=== PATIENT | male | born 2000 | race African-American/Black ===

== ENCOUNTER 2018-03-04 00:10 | Emergency (ER) | payer SELFPAY | END 2018-03-04 00:29 | disposition home or self-care (01) | LOC: ER 00:10 | DX: K04.7 Periapical abscess without sinus (principal); F12.10 Cannabis abuse, uncomplicated; F17.210 Nicotine dependence, cigarettes, uncomplicated | CPT/HCPCS: 99283 ==

== ENCOUNTER 2019-01-31 14:34 | Emergency (ER) | payer SELFPAY ==
[~2019-01-31] VITALS: Ht 180.3 cm; Wt 68.0 kg
[~2019-01-31 14:34] MED LIST: AMOX875T PO; IBUP-1060 PO
[2019-01-31 15:30] VITALS: BP 127/55
[2019-01-31] MEDS ORDERED: CLIN150C14 PO (16:00)
--- NOTE | 2019-01-31 16:00 | PHYS DOC ---
Past Medical History Past Medical History: No Pertinent History (CRIS STEWART APRN) Past Surgical History: No Surgical History (CRIS STEWART APRN) Alcohol Use: None Drug Use: Marijuana (CRIS STEWART APRN) Adult General Chief Complaint Chief Complaint: GROIN PAIN [facility] HPI Patient is a 18 year old AA male who presents to the ER with a complaints of a swollen knot in his right groin for the last 3 days and a firm, tender, boil on his lower left buttock for the last 2 days. He denies any fever, dysuria, abnormal penile discharge, or drainage from either site. He rates his pain a 8 out of 10 on the pain scale, there are no alleviating factors, palpation and pressure exacerbate the pain. (CRIS STEWART APRN) Review of Systems Review of Systems Constitutional: Denies fever or chills [] HENT: Denies nasal congestion or sore throat [] Respiratory: Denies cough or shortness of breath [] Cardiovascular: No additional information not addressed in HPI [] : Denies dysuria Musculoskeletal: Denies back pain or joint pain [] Integument: See HPI (CRIS STEWART APRN) Allergies Allergies Allergies Coded Allergies Type Severity Reaction Last Updated Verified No Known Drug Allergies 01/31/19 No (KAYLA MUÑOZ MD) Physical Exam Physical Exam Constitutional: Well developed, well nourished, no acute distress, non-toxic appearance. [] HENT: Normocephalic, atraumatic, bilateral external ears normal, nose normal. [] Eyes: conjunctiva normal, no discharge. [] Lungs & Thorax: Respirations even and unlabored, no retractions : 1 cm diameter palpable, smooth, moveable knot noted in right groin, non- fluctuant consistent with enlarged lymphnode, no erythema, no warmth, no drainage Skin: Warm, dry, no erythema; firm, tender, area noted to medial right buttock consistent with abscess, non-fluctuant, no pustule Extremities: No cyanosis, ROM intact Neurologic: Alert and oriented X 3, no focal deficits noted. [] Psychologic: Affect normal, judgement normal, mood normal. [] (CRIS STEWART APRN) Current Patient Data Vital Signs Vital Signs Date Time Temp Pulse Resp B/P (MAP) Pulse Ox O2 Delivery O2 Flow Rate FiO2 01/31/19 15:30 97.9 65 16 127/55 (79) 98 Room Air 97.9 (KAYLA MUÑOZ MD) EKG EKG [] (CRIS STEWART APRN) Radiology/Procedures Radiology/Procedures [] (CRIS STEWART APRN) Course & Med Decision Making Course & Med Decision Making Pertinent Labs and Imaging studies reviewed. (See chart for details) [] (CRIS STEWART APRN) Course & Med Decision Making Staff Physician Addendum: I was working in the ER during the course of this patient's visit. I was available for consultation as needed, but I was not directly involved in the care of this patient. (KAYLA MUÑOZ MD) Dragon Disclaimer Dragon Disclaimer This electronic medical record was generated, in whole or in part, using a voice recognition dictation system. (CRIS STEWART APRN) Departure Departure Impression: Primary Impression: Lymphadenopathy, inguinal Additional Impression: Abscess of right buttock Disposition: HOME, SELF-CARE Condition: STABLE Referrals: NO PCP (PCP) Patient Instructions: Abscess, [id number] Additional Instructions: Fill the prescription and use as directed. May apply warm moist packs to areas for comfort. Tylenol or ibuprofen as needed for pain. Follow up with your primary care doctor if symptoms persist. Scripts Clindamycin Hcl (CLINDAMYCIN HCL) 150 Mg Capsule 450 MG PO TID for 7 Days, #63 CAP 0 Refills Prov: CRIS STEWART APRN 01/31/19 Problem Qualifiers CRIS STEWART APRN Jan 31, 2019 16:00 KAYLA MUÑOZ MD Feb 01, 2019 07:58
== END 2019-01-31 16:02 | disposition home or self-care (01) ==
LOC: ER 14:34
DX: L02.31 Cutaneous abscess of buttock (principal); R59.0 Localized enlarged lymph nodes
CPT/HCPCS: 99283